=== PATIENT | female | born 2000 | race African-American/Black ===

== ENCOUNTER 2019-02-09 07:56 | Emergency (ER) | payer OTHER ==
[2019-02-09 09:05] LABS: ABSOLUTE EOSINOPHILS # (AUTO) 0.1 10^3/uL (0.0-0.6); ABSOLUTE LYMPHOCYTES (AUTO) 1.3 10^3/uL (0.5-4.7); ABSOLUTE MONOCYTES (AUTO) 0.7 10^3/uL (0.1-1.4); ABSOLUTE NEUT (AUTO) 7.6 10^3/uL (1.7-8.2); BASOPHILS % (AUTO) 0.2 % (0-2); EOSINOPHILS % (AUTO) 0.8 % (0-6); HEMATOCRIT 33.7 % (36.0-47.0); HEMOGLOBIN 11.2 g/dL (12.0-15.5); LYMPHOCYTES % (AUTO) 13.4 % (13-45); MEAN CORPUSCULAR HEMOGLOBIN 26.1 pg (27.0-33.4); MEAN CORPUSCULAR HGB CONC 33.3 g/dL (32.0-36.0); MEAN CORPUSCULAR VOLUME 78 fl (80-97); MONOCYTES % (AUTO) 6.9 % (3-13); PLATELET COUNT 359 10^3/uL (150-450); RED CELL DISTRIBUTION WIDTH 17.2 % (11.5-14.0); SEGMENTED NEUTROPHILS % (AUTO) 78.7 % (42-78); TOTAL CELLS COUNTED % (AUTO) 100 %; WHITE BLOOD COUNT 9.7 10^3/uL (4.0-10.5)
[2019-02-09] MEDS ORDERED: ACETAMINOPHEN 325 MG TABLET PO ONE (09:28)
--- NOTE | 2019-02-09 09:29 | ER Document Report ---
ED General - General Chief Complaint: OB Problem (<20wks) Stated Complaint: ABDOMINAL CRAMPING Time Seen by Provider: 02/09/19 09:04 Notes: 18 year old with EDC of 07/09/19 currently at approx 18 4/7 weeks gestation with local care and next appt 02/23 is here with 1 day of abdominal cramps and pain. No fever and no urinary symptoms. TRAVEL OUTSIDE OF THE [place] IN LAST 30 DAYS: No - HPI Onset: Just prior to arrival Severity: Mild Exacerbated by: Denies Relieved by: Denies Similar symptoms previously: No - Related Data Allergies/Adverse Reactions: kiwi Allergy (Verified 02/09/19 08:03) peanut butter Allergy (Uncoded 02/09/19 08:03) Past Medical History - Social History Smoking Status: Never Smoker Family History: Reviewed & Not Pertinent Patient has suicidal ideation: No Patient has homicidal ideation: No Review of Systems - Review of Systems Constitutional: No symptoms reported EENT: No symptoms reported Cardiovascular: No symptoms reported Respiratory: No symptoms reported Gastrointestinal: No symptoms reported Genitourinary: See HPI Female Genitourinary: No symptoms reported Musculoskeletal: No symptoms reported Skin: No symptoms reported Hematologic/Lymphatic: No symptoms reported Neurological/Psychological: No symptoms reported Physical Exam - Vital signs Vitals: Temp Pulse Resp BP Pulse Ox 98.0 F 116 H 20 120/77 97 02/09/19 07:56 02/09/19 07:56 02/09/19 07:56 02/09/19 07:56 02/09/19 07:56 Interpretation: Normal - General General appearance: Appears well, Alert - HEENT Head: Normocephalic, Atraumatic Eyes: Normal Pupils: PERRL - Respiratory Respiratory status: No respiratory distress Chest status: Nontender Breath sounds: Normal Chest palpation: Normal - Cardiovascular Rhythm: Regular Heart sounds: Normal auscultation Murmur: No - Abdominal Inspection: Normal Distension: No distension Bowel sounds: Normal Tenderness: Nontender Organomegaly: No organomegaly - Back Back: Normal, Nontender - Extremities General upper extremity: Normal inspection, Nontender, Normal color, Normal ROM, Normal temperature General lower extremity: Normal inspection, Nontender, Normal color, Normal ROM, Normal temperature, Normal weight bearing. No: Desirae's sign - Neurological Neuro grossly intact: Yes Cognition: Normal Orientation: AAOx4 Joe Coma Scale Eye Opening: Spontaneous Joe Coma Scale Verbal: Oriented Joe Coma Scale Motor: Obeys Commands Joe Coma Scale Total: 15 Speech: Normal Motor strength normal: LUE, RUE, LLE, RLE Sensory: Normal - Psychological Associated symptoms: Normal affect, Normal mood - Skin Skin Temperature: Warm Skin Moisture: Dry Skin Color: Normal Course - Re-evaluation Re-evalutation: 02/09/19 14:42 MDM Resting and improved. Discussed follow up and she expressed understanding. - Vital Signs Vital signs: Temp Pulse Resp BP Pulse Ox 97.5 F 89 18 109/56 L 100 02/09/19 14:57 02/09/19 14:57 02/09/19 14:57 02/09/19 14:57 02/09/19 14:57 - Laboratory Result Diagrams: 02/09/19 08:52 02/09/19 08:52 Laboratory results interpreted by me: 02/09/19 02/09/19 02/09/19 08:52 08:52 09:30 Hgb 11.2 L Hct 33.7 L MCV 78 L MCH 26.1 L RDW 17.2 H Seg Neutrophils % 78.7 H Sodium 136.7 L BUN 4 L Creatinine 0.51 L Beta HCG, Quant 28832.00 H Urine Protein 30 H Urine Urobilinogen 4.0 H Ur Leukocyte Esterase LARGE H Urine Ascorbic Acid 20 H - Diagnostic Test Radiology reviewed: Reports reviewed Discharge - Discharge Clinical Impression: UTI (urinary tract infection) Qualifiers: Urinary tract infection type: site unspecified Hematuria presence: with hematuria Qualified Code(s): N39.0 - Urinary tract infection, site not specified Normal IUP (intrauterine ) on ultrasound Qualifiers: Trimester: second trimester Qualified Code(s): Z34.92 - Encounter for super vision of normal , unspecified, second trimester Condition: Good Disposition: HOME, SELF-CARE Instructions: ([facility]), Urinary Tract Infection ([facility]) Additional Instructions: Rest, fluids, medicines as directed. Please return here for any problems or any concerns. Take tylenol as needed for pain and return here for any problems or any concerns. Prescriptions: Nitrofurantoin/Nitrofuran Mac [Macrobid 100 mg Capsule] 1 tab PO BID #20 capsule Forms: Parent Work Note
[2019-02-09 09:31] LABS: ALBUMIN 3.7 g/dL (3.7-5.6); ALKALINE PHOSPHATASE 86 U/L (50-135); ANION GAP 8 (5-19); ASPARTATE AMINO TRANSFERASE 15 U/L (5-30); BILIRUBIN,DIRECT 0.1 mg/dL (0.0-0.4); BILIRUBIN,TOTAL 0.3 mg/dL (0.2-1.3); BLOOD UREA NITROGEN 4 mg/dL (7-20); CALCIUM 9.6 mg/dL (8.4-10.2); CARBON DIOXIDE 25 mmol/L (22-30); CHLORIDE 104 mmol/L (98-107); GLUCOSE 78 mg/dL (75-110); POTASSIUM 3.8 mmol/L (3.6-5.0); TOTAL PROTEIN 6.9 g/dL (6.3-8.2)
[2019-02-09 09:54] LABS: APPEARANCE,URINE SLIGHTLY-CLOUDY; BILIRUBIN,URINE NEGATIVE (NEGATIVE); COLOR,URINE AMBER; GLUCOSE, URINE NEGATIVE (NEGATIVE); KETONES,URINE NEGATIVE (NEGATIVE); LEUKOCYTE ESTERASE,URINE LARGE (NEGATIVE); NITRITE,URINE NEGATIVE (NEGATIVE); PROTEIN,URINE 30 mg/dL (NEGATIVE); URINE SPECIFIC GRAVITY 1.031
--- NOTE | 2019-02-09 12:38 | RADIOLOGY REPORT (SQ) ---
EXAM DESCRIPTION: U/S OB LIMITED COMPLETED DATE/TIME: 02/09/2019 12:09 pm REASON FOR STUDY: abd cramps/ pain COMPARISON: None. TECHNIQUE: Limited transabdominal grayscale ultrasound for evaluation of specific requested obstetri alka parameters. LIMITATIONS: None. FINDINGS: EGA: 18 weeks 4 days. LEYLA: 07/09/2019. CERVICAL LENGTH: 4.8 cm Closed. DVP: 5 cm. FHR: 162 beats per minute. PRESENTATION: Breech. PLACENTA: Anterior ANATOMY: Not assessed OTHER: EGA based on ultrasound 18 weeks 5 days (concordant). IMPRESSION: LIMITED OBSTETRICAL ULTRASOUND WITH MEASURED PARAMETERS DELINEATED ABOVE. Trimester of : Second trimester - 13 weeks 1 day to 27 weeks 6 days. TECHNICAL DOCUMENTATION: JOB ID: [id number] [employer]- All Rights Reserved Reading location - IP/workstation name: [email or web address]
[2019-02-09] MEDS ORDERED: NITROFURANTOIN MONOHYD/M-CRYST 100 MG CAPSULE PO ONE (14:41)
[2019-02-09 14:57] VITALS: BP 109/56
== END 2019-02-09 15:00 | disposition home or self-care (01) ==
LOC: ER 07:56 → EDSTATUS 07:56 → ER 15:00
DX: O23.42 Unspecified infection of urinary tract in pregnancy, second trimester (principal); O26.892 Other specified pregnancy related conditions, second trimester; R10.9 Unspecified abdominal pain; Z3A.18 18 weeks gestation of pregnancy
CPT/HCPCS: 99284; 36415; 84702; 83690; 85025; 80053; 81001; 76815; J8499

== ENCOUNTER 2019-03-31 08:31 | Outpatient (CLI) | payer OTHER, MEDICAID ==
[2019-03-31 09:16] LABS: APPEARANCE,URINE SLIGHTLY-CLOUDY; BILIRUBIN,URINE NEGATIVE (NEGATIVE); COLOR,URINE YELLOW; GLUCOSE, URINE NEGATIVE (NEGATIVE); KETONES,URINE NEGATIVE (NEGATIVE); LEUKOCYTE ESTERASE,URINE LARGE (NEGATIVE); NITRITE,URINE NEGATIVE (NEGATIVE); PROTEIN,URINE NEGATIVE (NEGATIVE); URINE SPECIFIC GRAVITY 1.013; UROBILINOGEN,URINE NEGATIVE mg/dL (<2.0)
[2019-03-31 09:28] LABS: URINE AMPHETAMINES SCREEN NEGATIVE; URINE BARBITURATES SCREEN NEGATIVE; URINE BENZODIAZEPINES SCREEN NEGATIVE; URINE COCAINE SCREEN NEGATIVE; URINE MARIJUANA (THC) SCREEN NEGATIVE; URINE METHADONE SCREEN NEGATIVE; URINE PHENCYCLIDINE SCREEN NEGATIVE
[2019-03-31] MEDS ORDERED: BETAMET ACET/BETAMET NA INJ 6 MG/1 ML ONE (10:55)
--- NOTE | 2019-03-31 10:55 | RADIOLOGY REPORT (SQ) ---
EXAM DESCRIPTION: U/S OB LIMITED COMPLETED DATE/TIME: 03/31/2019 10:35 am REASON FOR STUDY: TRANSVAGINAL CERVICAL LENGTH COMPARISON: 02/09/2019. TECHNIQUE: Limited transvaginal and transabdominal grayscale ultrasound for evaluation of specific r equested obstetrical parameters. LIMITATIONS: None. FINDINGS: CERVICAL LENGTH: 2.0 cm. Closed. There is funneling at the internal os. MARIA LUISA: 14.6 cm. FHR: 144 beats per minute. PRESENTATION: Breech. PLACENTA: Anterior ANATOMY: Not assessed OTHER: No other significant findings. IMPRESSION: LIMITED OBSTETRICAL ULTRASOUND WITH MEASURED PARAMETERS DELINEATED ABOVE. Trimester of : Second trimester - 13 weeks 1 day to 27 weeks 6 days. TECHNICAL DOCUMENTATION: JOB ID: [id number] [employer]- All Rights Reserved Reading location - IP/workstation name: [email or web address]
[2019-03-31] MEDS ORDERED: BETAMET ACET/BETAMET NA INJ 6 MG/1 ML IM ONE (11:07)
[2019-03-31 11:22] LABS: BACTERIA (WET MOUNT) 4+ BACTERIA SEEN; EPITHELIALS (WET MOUNT) 4+ EPITHELIALS SEEN; RBCS (WET MOUNT) 1+ RBCS SEEN; T.VAGINALIS (WET MOUNT) NO TRICHOMONAS SEEN; WBCS (WET MOUNT) 3+ WBCS SEEN; YEAST (WET MOUNT) NO YEAST SEEN
[2019-03-31] MEDS ORDERED: FLUCONAZOLE 100 MG TABLET PO ONE ×2 (11:40→13:30)
[2019-03-31] MEDS ORDERED: FLUCONAZOLE 100 MG TABLET ONE ×2 (12:10→12:14)
[2019-03-31] MEDS ORDERED: PENICILLIN G POTASSIUM 5,000,000 UNIT in DEXTROSE 5%-WATER 100 ML IV ONE (12:27)
--- NOTE | 2019-03-31 12:27 | PDOC TRANSFER SUMMARY ---
General Admission Date/PCP: NORMAN SILVA MD Admission Date: 03/31/19 Transfer Date: 03/31/19 Accepting Facility: [facility] Accepting Physician: Dr. Parra Resuscitation Status: Full Code - Transfer Diagnosis (1) contractions Is this a current diagnosis for this admission?: Yes Diagnosis Summary: patient came in complaining of constant lower abdominal pain and intermittent worsening of the abd pain. as well as back pain. Clinically she has a yeast infection despite wet prep negative. Patient was initially evaluated by CNM and US ordered without fFN collected for hold first. Therefore no fFN result available. patient appears comfortable. Upon return from US patient was claudette q 3-5 minutes. She voided and she now is having ctx q 10-12 minutes. The contractions palpate mild and are difficult to monitor - patient was given a marker. US result and pictures are c/w this with notation of cervical shortening to 2cm and u shaped funneling. Breech presentation. Celestone ordered. Cervical length pulled from office anatomy US - cervix was closed without funneling on 02/19/2019 and length was 3.46cm. Reviewed findings with patient and family and Dr. Lesly Meadows. Option given to patient for transfer in case of possible delivery due to . Pt desires to transfer to [facility] for evaluation and continued monitoring in case due to cervical shortening and symptomatic contractions. [facility] contacted and Magnesium Sulfate initiated and PCN initiated. Dr. Parra accepted patient. Appreciate Dr. Parra and Dr. Meadows assistance with patient. GC/Chlam negative. 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 External os is closed. - Transfer Medications Home Medications: Vit No.130/Iron/Folic [ Vitamins] 1 each PO DAILY 03/31/19 Transfer Medications: Current Medications Fluconazole (Diflucan 100 Mg Tablet) 150 mg PO NOW ONE Stop: 03/31/19 12:23 Magnesium Sulfate 4gram load with 2gram/hr Penicillin for GBS prophylaxis Celestone 12mg IM once now. - Allergies Allergies/Adverse Reactions: kiwi Allergy (Verified 03/31/19 08:44) peanut butter Allergy (Uncoded 02/09/19 08:03) - Diet/Activity Discharge Diet: As Tolerated Discharge Activity: Bedrest Hospital Course Hospital Course: 19yo at 25+1ega (LEYLA 07/13/2019) presents for abdominal and pelvic and back pain. See dx above for presentation and evaluation and plan. Short infervan with now 9 month old present with patient. Prior delivery was 07/16/2018 FTSVD (6#15oz female) with IOL due to post LEYLA. She delivered G1 in [place]. Physical Exam Vital Signs: Intake & Output 03/30/19 03/31/19 04/01/19 06:59 06:59 06:59 Weight 85.7 kg General appearance: PRESENT: no acute distress, well-developed, well-nourished Head exam: PRESENT: atraumatic, normocephalic Respiratory exam: PRESENT: clear to auscultation cristel. ABSENT: rales, rhonchi, wheezes Cardiovascular exam: PRESENT: RRR. ABSENT: diastolic murmur, rubs, systolic murmur Pulses: PRESENT: normal dorsalis pedis pul Vascular exam: PRESENT: normal capillary refill GI/Abdominal exam: PRESENT: normal bowel sounds, soft. ABSENT: distended, guarding, mass, organolmegaly, rebound, tenderness Rectal exam: PRESENT: deferred Extremities exam: PRESENT: full ROM. ABSENT: calf tenderness, clubbing, pedal edema Musculoskeletal exam: PRESENT: ambulatory Neurological exam: PRESENT: alert, awake, oriented to person, oriented to place, oriented to time, oriented to situation, CN II-XII grossly intact. ABSENT: motor sensory deficit Results Laboratory Results: 03/31/19 08:44 Urine Color YELLOW Urine Appearance SLIGHTLY-CLOUDY Urine pH 7.0 Ur Specific [place] 1.013 Urine Protein NEGATIVE Urine Glucose (UA) NEGATIVE Urine Ketones NEGATIVE Urine Blood NEGATIVE Urine Nitrite NEGATIVE Ur Leukocyte Esterase LARGE H Urine WBC (Auto) 11 Urine RBC (Auto) 3 Impressions: Obstetrics Ultrasound 03/31/19 00:00 IMPRESSION: LIMITED OBSTETRICAL ULTRASOUND WITH MEASURED PARAMETERS DELINEATED ABOVE. Trimester of : Second trimester - 13 weeks 1 day to 27 weeks 6 days. Status: Imported from PACS Plan Discharge Plan: Transfer to [facility] for additional monitoring and when discharged from [facility] will continue to follow at [facility] in [place], [place] Time Spent: Greater than 30 Minutes
[2019-03-31] MEDS ORDERED: MAGNESIUM SULFATE 20 GM/500 ML RTUINJ IV PRN (12:34)
[2019-03-31] MEDS ORDERED: MAGNESIUM SULFATE 4 GM/100 ML RTUPB IV ONE ×2 (12:35→13:30)
[2019-03-31] MEDS ORDERED: MAGNESIUM SULFATE 20 GM/500 ML RTUINJ IV ONE (12:36)
[2019-03-31] MEDS ORDERED: PENICILLIN G-K 5 MILLION UNIT VIAL ONE (12:36)
[2019-03-31] MEDS ORDERED: RINGERS SOLUTION,LACTATED 1,000 ML IV PRN (12:45)
[2019-03-31 12:53] LABS: CHLAM PCR NOT DETECTED (NOT DETECT)
[2019-03-31] MEDS ORDERED: PENICILLIN G POTASSIUM 2,500,000 UNIT in DEXTROSE 5%-WATER 50 ML IV SCH (16:27)
== END 2019-03-31 16:04 | disposition short-term general hospital (02) ==
LOC: LC 08:31
PROVIDERS: ATTEND Student in an Organized Health Care Education/Training Program
PROC: 4A1HXCZ Monitoring of Products of Conception, Cardiac Rate, External Approach (ICD-10-PCS; principal; 2019-03-31)
DX: O60.02 Preterm labor without delivery, second trimester (principal); O26.872 Cervical shortening, second trimester; O98.812 Other maternal infectious and parasitic diseases complicating pregnancy, second trimester; B37.9 Candidiasis, unspecified; Z3A.25 25 weeks gestation of pregnancy; Z91.010 Allergy to peanuts; Z91.013 Allergy to seafood
CPT/HCPCS: 59899; 87086; 87210; 81001; 80307; 87491; 87591; 76815; J3475 ×2; J2540; J0702

== ENCOUNTER 2019-06-18 21:24 | Outpatient (CLI) | payer OTHER, MEDICAID ==
[2019-06-18 22:01] LABS: APPEARANCE,URINE SLIGHTLY-CLOUDY; BILIRUBIN,URINE NEGATIVE (NEGATIVE); CALCIUM OXALATE CRYSTALS,URINE MODERATE /HPF; COLOR,URINE YELLOW; GLUCOSE, URINE NEGATIVE (NEGATIVE); KETONES,URINE 20 mg/dL (NEGATIVE); LEUKOCYTE ESTERASE,URINE TRACE (NEGATIVE); NITRITE,URINE NEGATIVE (NEGATIVE); PROTEIN,URINE 30 mg/dL (NEGATIVE); URINE SPECIFIC GRAVITY 1.023
[2019-06-18 22:21] LABS: URINE AMPHETAMINES SCREEN NEGATIVE; URINE BARBITURATES SCREEN NEGATIVE; URINE BENZODIAZEPINES SCREEN NEGATIVE; URINE COCAINE SCREEN NEGATIVE; URINE MARIJUANA (THC) SCREEN NEGATIVE; URINE METHADONE SCREEN NEGATIVE; URINE PHENCYCLIDINE SCREEN NEGATIVE
--- NOTE | 2019-06-18 22:45 | Non Stress Test Report ---
Non Stress Test Datetime Report Generated by CPN: 06/18/2019 22:45 DEMOGRAPHIC EGA NST: 36.3 INDICATION Indication for Study (NST) Other: Labor check URINE RESULTS Urine Protein, NST: Positive MONITORING Monitor Explained: Monitor Explained; Test Explained; Patient Verbalized Understanding Time on Monitor: 06/18/2019 22:02 Time off Monitor: 06/18/2019 22:29 NST Duration: 27 NST INTERVENTIONS NST Interventions: PO Hydration Physician Notified NST: Dr. Garcia BABY A: [id number] BABY A Movement : Present Contraction Frequency : none FHR Baseline : 125 Accelerations : 15X15 Decelerations : None Variability : Moderate 6-25bpm NST Review: Meets Criteria for Reactive NST NST Review and Verified By : SANG Garnett NST Results: Reactive NST REPORT Report Trigger: Send Report
== END 2019-06-18 22:40 | disposition home or self-care (01) ==
LOC: LC 21:24
PROVIDERS: ATTEND Obstetrics & Gynecology Gynecology
PROC: 4A1HXCZ Monitoring of Products of Conception, Cardiac Rate, External Approach (ICD-10-PCS; principal; 2019-06-18)
DX: Z34.93 Encounter for supervision of normal pregnancy, unspecified, third trimester (principal)
CPT/HCPCS: 59025; 80307; 81001

== ENCOUNTER 2019-07-08 20:40 | Inpatient (IN) | payer OTHER, MEDICAID ==
[2019-07-08] MEDS ORDERED: RINGERS SOLUTION,LACTATED 1,000 ML IV ONE (21:07)
[2019-07-08] MEDS ORDERED: RINGERS SOLUTION,LACTATED 1,000 ML IV PRN (21:07)
[2019-07-08] MEDS ORDERED: OXYTOCIN 10 UNIT/ML VIAL ONE (21:09)
[2019-07-08] MEDS ORDERED: MISOPROSTOL 0.2 MG TABLET ONE (21:10)
[2019-07-08] MEDS ORDERED: OXYTOCIN/NORMAL SALINE 20 UNIT/1,000 ML RTUINJ ONE (21:10)
[2019-07-08] MEDS ORDERED: LIDOCAINE 1% INJ-PF (10 MG/ML) 30 ML SDV ONE (21:10)
[2019-07-08 21:51] LABS: ABSOLUTE EOSINOPHILS # (AUTO) 0.1 10^3/uL (0.0-0.6); ABSOLUTE LYMPHOCYTES (AUTO) 2.5 10^3/uL (0.5-4.7); ABSOLUTE MONOCYTES (AUTO) 1.2 10^3/uL (0.1-1.4); ABSOLUTE NEUT (AUTO) 8.8 10^3/uL (1.7-8.2); BASOPHILS % (AUTO) 0.3 % (0-2); EOSINOPHILS % (AUTO) 0.7 % (0-6); HEMATOCRIT 31.2 % (36.0-47.0); HEMOGLOBIN 10.4 g/dL (12.0-15.5); LYMPHOCYTES % (AUTO) 19.5 % (13-45); MEAN CORPUSCULAR HEMOGLOBIN 25.2 pg (27.0-33.4); MEAN CORPUSCULAR HGB CONC 33.3 g/dL (32.0-36.0); MEAN CORPUSCULAR VOLUME 76 fl (80-97); MONOCYTES % (AUTO) 9.2 % (3-13); PLATELET COUNT 326 10^3/uL (150-450); RED BLOOD COUNT 4.12 10^6/uL (3.72-5.28); RED CELL DISTRIBUTION WIDTH 18.2 % (11.5-14.0); SEGMENTED NEUTROPHILS % (AUTO) 70.3 % (42-78); TOTAL CELLS COUNTED % (AUTO) 100 %; WHITE BLOOD COUNT 12.6 10^3/uL (4.0-10.5)
--- NOTE | 2019-07-08 21:54 | Admission Physical ---
Datetime Report Generated by CPN: 07/08/2019 21:54 CURRENT ADMISSION Chief Complaint: Uterine Contractions Indication for Induction: Not Applicable Admit Impression : No Active Labor Admit Plan: Admit to Unit ALLERGIES Medication Allergies: No Medication Allergies: kiwi (06/18/2019) Latex: No Latex Allergies OBSTETRICAL HISTORY EDC: 07/13/2019 00:00 : 2 Para: 1 Term: 1 : 0 SAB: 0 IAB: 0 Ectopic: 0 Livin Cesareans: 0 VBACs: 0 Multiple Births: 0 Gestational Diabetes: No Rh Sensitization: No Incompetent Cervix: No QUINTON: No Infertility: No ART Treatment: No Uterine Anomaly: No IUGR: No Hx Previous C/S: No Macrosomia: No Hx Loss/Stillborn: No PIH: No Hx : No Placenta Previa/Abruption: No Depression/PP Depression: No PTL/PROM: No Post Hemorrhage: No Current Procedures: Ultrasound; NST SEE RECORDS Alcohol: No Marijuana : No Cocaine: No Other Illicit Drugs: No Cigarettes: Never Smoker. 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 Surgery: No Heart Disease: No Hosp/Surgery: No Autoimmune Disorder: No Anesthetic Complications: No Kidney Disease: No Abnormal Pap Smear: No Neuro/Epilepsy: No Psychiatric Disorders: No Other Medical Diseases: No Hepatitis/Liver Disease: No Significant Family History: No Varicosities/Phlebitis: No Trauma/Violence : No Thyroid Dysfunction: No INFECTIOUS HISTORY Gonorrhea: No Genital Herpes: No Chlamydia: No Syphilis: No HIV/AIDS Exposure: No HPV: No PHYSICAL EXAM General: Normal HEENT: Normal Neurologic: Normal Thyroid: Normal Heart: Normal Lungs: Normal Breast: Deferred Back: Normal Abdomen: Normal Genitourinary Exam: Normal Extremities: Normal DTRs: Normal Pelvic Type: Adequate Vital Signs: Reviewed VAGINAL EXAM Dilatation: 6 Effacement: 75 Station: 0 MEMBRANES Pooling: Negative Membranes: Intact FETUS A EGA: 39.2 Monitoring: External US FHR- Baseline: 120 Variability: Moderate 6-25bpm Decelerations: None FHR Category: Category I Presentation: Vertex Admit Comment: Admit for labor PLANS FOR LABOR AND DELIVERY Labor and Delivery: None Pain Management: Epidural Feeding Preference: Both Circumcision: Yes INFORMED CONSENT Signature: with User ID: [email or web address]
[2019-07-08 21:58] LABS: APPEARANCE,URINE SLIGHTLY-CLOUDY; BILIRUBIN,URINE NEGATIVE (NEGATIVE); COLOR,URINE YELLOW; GLUCOSE, URINE NEGATIVE (NEGATIVE); KETONES,URINE NEGATIVE (NEGATIVE); LEUKOCYTE ESTERASE,URINE SMALL (NEGATIVE); NITRITE,URINE NEGATIVE (NEGATIVE); PROTEIN,URINE NEGATIVE (NEGATIVE); URINE SPECIFIC GRAVITY 1.018
[2019-07-08] MEDS ORDERED: BUPIVACAINE HCL 0.25 % INJ/PF (2.5 MG/1 ML) 30 ML VIAL ONE (22:02)
[2019-07-08] MEDS ORDERED: EPHEDRINE SULFATE INJ 50 MG/1 ML AMPULE ONE (22:02)
[2019-07-08] MEDS ORDERED: FENTANYL/BUPIVACAINE/NS/PF 300 MCG/150 ML RTUINJ EPI ONE (22:02)
[2019-07-08 22:24] LABS: URINE AMPHETAMINES SCREEN NEGATIVE; URINE BARBITURATES SCREEN NEGATIVE; URINE BENZODIAZEPINES SCREEN NEGATIVE; URINE COCAINE SCREEN NEGATIVE; URINE MARIJUANA (THC) SCREEN NEGATIVE; URINE METHADONE SCREEN NEGATIVE; URINE PHENCYCLIDINE SCREEN NEGATIVE
[2019-07-08] MEDS ORDERED: PROMETHAZINE HCL INJ 25 MG/1 ML VIAL IV PRN (23:44)
[2019-07-08] MEDS ORDERED: BENZOCAINE/MENTHOL AEROSOL SPRAY 56 ML TOP PRN (23:44)
[2019-07-08] MEDS ORDERED: ZOLPIDEM TARTRATE 5 MG TABLET PO PRN (23:44)
[2019-07-08] MEDS ORDERED: ACETAMINOPHEN WITH CODEINE #3 TABLET PO PRN ×2 (23:44)
[2019-07-08] MEDS ORDERED: OXYTOCIN/NORMAL SALINE 20 UNIT/1,000 ML RTUINJ IV PRN (23:44)
[2019-07-08] MEDS ORDERED: NA PHOS,M-B/NA PHOS,DI-BA (ADULT) 133 ML ENEMA PR PRN (23:44)
[2019-07-08] MEDS ORDERED: PROMETHAZINE HCL 25 MG SUPP.RECT PR PRN (23:44)
[2019-07-08] MEDS ORDERED: PSEUDOEPHEDRINE HCL 30 MG TABLET PO PRN (23:44)
[2019-07-08] MEDS ORDERED: DIPH/PERTUSS(ACELL)/TETANUS VAC/PF 0.5 ML SYR (>=10YO) IM PRN (23:44)
[2019-07-08] MEDS ORDERED: MEASLES,MUMPS&RUBELLA VACC/PF 0.5 ML VIAL SUBCUT PRN (23:44)
[2019-07-08] MEDS ORDERED: GLYCERIN/WITCH HAZEL LEAF 1 EACH MED..WIPE TP PRN (23:44)
[2019-07-08] MEDS ORDERED: ACETAMINOPHEN 650 MG SUPP.RECT PR PRN (23:44)
[2019-07-08] MEDS ORDERED: DIPHENHYDRAMINE HCL 25 MG CAPSULE PO PRN (23:44)
[2019-07-08] MEDS ORDERED: PROMETHAZINE HCL 25 MG TABLET PO PRN (23:44)
[2019-07-08] MEDS ORDERED: DIBUCAINE 1% OINTMENT 28 GM TP PRN (23:44)
[2019-07-08] MEDS ORDERED: MAGNESIUM HYDROXIDE SUSP 30 ML UDCUP PO PRN (23:44)
[2019-07-08] MEDS ORDERED: FAMOTIDINE 20 MG TABLET PO ONE (23:45)
--- NOTE | 2019-07-09 03:09 | Delivery Summary ---
Del Sum A-C Datetime Report Generated by CPN: 07/09/2019 03:08 DELIVERY PERSONNEL DELIVERY PERSONNEL: [id number] Delivery Doctor:: Michael Schmidt MD Labor and Delivery Nurse:: Kimmie Mullen RN Nursery Nurse:: Domenica Verduzco RN Radial Drill Press Operator For Plastic/CIGAR HEAD PIERCER: Kandy Donn, FUDGE CANDY MAKER Radial Drill Press Operator For Plastic/CIGAR HEAD PIERCER: Nicol Coles, ST MATERNAL INFORMATION Delivery Anesthesia: Epidural Medications After Delivery: Pitocin Bolus-Please Comment Meds After Delivery Comment: Pitocin 20 units/1000 ml NSS Estimated Blood Loss (ml): 400 Delivery QBL: 250 Maternal Complications: None LABOR SUMMARY EDC: 07/13/2019 00:00 No. Babies in Womb: 1 Attempted: No Labor Anesthesia: Epidural LABOR INFORMATION Reason for Induction: Not Applicable Onset of Labor: 07/08/2019 21:00 Complete Dilatation: 07/09/2019 00:27 Oxytocin: N/A Group B Beta Strep: negative Antibiotics # of Doses: 0 Steroids Given: None Reason Steroids Not Administered: Not Applicable MEMBRANES Membranes Rupture Method: Artificial Rupture of Membranes: 07/09/2019 00:27 Length of Rupture (hr): 1.17 Amniotic Fluid Color: Clear Amniotic Fluid Amount: Moderate Amniotic Fluid Odor: Normal STAGES OF LABOR Stage 1 hr: 3 Stage 1 min: 27 Stage 2 hr: 1 Stage 2 min: 10 Stage 3 hr: 0 Stage 3 min: 3 Total Time in Labor hr: 4 Total Time in Labor min: 40 VAGINAL DELIVERY Episiotomy: None Laceration #1: Perineal Laceration Extension #1: Second Degree Laceration #2: None Laceration Extension #2: N/A Laceration #3: None Laceration Extension #3: N/A Laceration Repair: Yes Laceration Repair Note: repair with 3-0 chromic in usual fashion with good approximation of tissue Sponge Count Correct: Vaginal Sweep Performed Sharps Count Correct: Yes CSECTION DELIVERY Primary Indication: N/A Secondary Indication: N/A CSection Incidence: N/A Labor: N/A Elective: N/A CSection Incision: N/A BABY A INFORMATION Delivery Date/Time: 07/09/2019 01:37 Method of Delivery: Vaginal Nurse Controlled Delivery: No Born in Route : No : N/A Forceps: N/A Vacuum Extraction: N/A Shoulder Dystocia : No PRESENTATION/POSITION BABY A Presentation: Cephalic Cephalic Presentation: Vertex Vertex Position: Left Occipital Anterior Breech Presentation: N/A PLACENTA INFORMATION BABY A Placenta Delivery Time : 07/09/2019 01:40 Placenta Method of Delivery: Spontaneous Placenta Status: Delivered SCORES BABY A Heart Rate 1 min: >100 bpm Resp Effort 1 min: Good Cry Reflex Irritability 1 min: Cough or Sneeze or Pulls Away Muscle Tone 1 min: Active Motion Color 1 min: Blue/Pale Resuscitation Effort 1 min: Tactile Stimulation SCORE 1 MIN: 8 Heart Rate 5 min: >100 bpm Resp Effort 5 min: Good Cry Reflex Irritability 5 min: Cough or Sneeze or Pulls Away Muscle Tone 5 min: Active Motion Color 5 min: Body Manuel Garcia Ii, Extremities Blue Resuscitation Effort 5 min: Tactile Stimulation SCORE 5 MIN: 9 INFORMATION BABY A Gestational Age at Delivery: 39.3 Gestational Status: Full Term- 39- 40.6 Weeks Outcome : Liveborn Condition : Stable Sex: Male IDENTIFICATION BABY A Verification Date/Time: 07/09/2019 01:46 ID Band Number: [id number] Mother's Name Verified: Yes Infant RN Verifying Infant: , RN Additional Verifying Personnel: LBeverly, FUDGE CANDY MAKER WEIGHT/LENGTH BABY A Birthweight (gm): 3888 Infant Weight (lb): 8 Weight (oz): 9 Infant Length (in): 20.50 Length (cm): 52.07 CORD INFORMATION BABY A No. Cord Vessels: 3 Nuchal Cord : N/A Cord Blood Taken: Yes-For Eval (Mom's Blood Type - or O+) Suction: Mouth; Nose ASSESSMENT BABY A Complications: None Physical Findings at Delivery: Within Normal Limits Respirations: Appears Normal Transferred To: Remains with Mother SIGNATURES Signature: with User ID: [email or web address]
[2019-07-09] MEDS: IBUPROFEN 800 MG TABLET PO SCH ×3 (05:22→21:50)
[2019-07-09 06:53] LABS: HEMATOCRIT 24.4 % (36.0-47.0); MEAN CORPUSCULAR HEMOGLOBIN 25.2 pg (27.0-33.4); MEAN CORPUSCULAR HGB CONC 33.3 g/dL (32.0-36.0); MEAN CORPUSCULAR VOLUME 76 fl (80-97); PLATELET COUNT 255 10^3/uL (150-450); RED BLOOD COUNT 3.23 10^6/uL (3.72-5.28); RED CELL DISTRIBUTION WIDTH 18.3 % (11.5-14.0); WHITE BLOOD COUNT 19.7 10^3/uL (4.0-10.5)
[2019-07-09 06:55] LABS: HEMOGLOBIN 8.1 g/dL (12.0-15.5)
[2019-07-09] MEDS: FERROUS SULFATE 325 MG TABLET PO SCH ×2 (09:53→18:43)
[2019-07-09] MEDS: SENNOSIDES/DOCUSATE 8.6-50 MG 1 EACH TABLET PO SCH (09:54)
[2019-07-09] MEDS: DOCUSATE SODIUM 100 MG CAPSULE PO SCH ×2 (09:54→18:42)
[2019-07-09] MEDS: PRENATAL VITAMIN W DHA CAPSULE PO SCH (09:54)
[2019-07-09] MEDS: FAMOTIDINE 20 MG TABLET PO SCH ×2 (09:54→21:49)
[2019-07-10] MEDS: IBUPROFEN 800 MG TABLET PO SCH ×3 (05:30→21:35)
[2019-07-10 07:02] LABS: HEMATOCRIT 22.3 % (36.0-47.0); MEAN CORPUSCULAR HEMOGLOBIN 25.4 pg (27.0-33.4); MEAN CORPUSCULAR HGB CONC 33.4 g/dL (32.0-36.0); MEAN CORPUSCULAR VOLUME 76 fl (80-97); PLATELET COUNT 258 10^3/uL (150-450); RED BLOOD COUNT 2.94 10^6/uL (3.72-5.28)
[2019-07-10 07:11] LABS: HEMOGLOBIN 7.5 g/dL (12.0-15.5)
--- NOTE | 2019-07-10 10:00 | PDOC PROGRESS REPORT ---
Subjective-OB Progress Note for:: 07/10/19 - PP day #1, doing well, denies c/o dizziness when UOB. States Hx of anemia. O+. breast and bottlefeeding. Physical Exam (OB) Vital Signs: Temp Pulse Resp BP Pulse Ox 98.1 F 88 18 105/68 100 07/10/19 07:13 07/10/19 07:13 07/10/19 07:13 07/10/19 07:13 07/10/19 07:13 Intake & Output 07/09/19 07/10/19 07/11/19 06:59 06:59 06:59 Intake Total 1120 Output Total 300 Balance -300 1120 Weight 94.5 kg - General General Appearance: Appears well, Alert In distress: None - PIH/Pre-Eclampsia DTR's: 2 + Clonus: Negative Headache: Absent Epigastric Pain: No Visual Changes: No - Lochia Lochia Amount: Small 10-25 ml Lochia Color: Rubra/Red - Abdomen Description: Soft Hernia Present: No Fundal Description: Firm, Midline Fundal Height: u/u - u/2 - Respiratory Respiratory Status: No respiratory distress - Genitourinary Genitourinary Note: voiding - Extremities Upper extremity: Normal inspection Lower extremities: Normal inspection - Neurological Cognition: Normal Orientation: AAOx4 - Psychological Associated symptoms: Normal affect, Normal mood - Skin Skin Temperature: Warm Skin Moisture: Dry Objective-Diagnostic Laboratory: 07/10/19 06:28 07/10/19 06:28 WBC 12.0 H RBC 2.94 L Hgb 7.5 L Hct 22.3 L MCV 76 L MCH 25.4 L MCHC 33.4 RDW 18.0 H Plt Count 258 Assessment and Plan(PN) - Assessment and Plan (1) (normal spontaneous vaginal delivery) Is this a current diagnosis for this admission?: Yes (2) Acute blood loss anemia Is this a current diagnosis for this admission?: Yes Plan:: Normal Ortho-statics. Will give IV iron today. Iron rich foods encouraged. - Time Spent with Patient Time with patient: Less than 15 minutes Medications reviewed and adjusted accordingly: Yes - Disposition Anticipated Discharge: Home Within: within 24 hours
[2019-07-10] MEDS ORDERED: IRON SUCROSE COMPLEX INJ/PF 100 MG/5 ML SDV IV ONE (10:30)
[2019-07-10] MEDS: DOCUSATE SODIUM 100 MG CAPSULE PO SCH ×2 (11:15→17:30)
[2019-07-10] MEDS: SENNOSIDES/DOCUSATE 8.6-50 MG 1 EACH TABLET PO SCH (11:15)
[2019-07-10] MEDS: FAMOTIDINE 20 MG TABLET PO SCH ×2 (11:15→21:35)
[2019-07-10] MEDS: FERROUS SULFATE 325 MG TABLET PO SCH ×2 (11:15→17:30)
[2019-07-10] MEDS: PRENATAL VITAMIN W DHA CAPSULE PO SCH ×2 (11:15→11:35)
[2019-07-11] MEDS: IBUPROFEN 800 MG TABLET PO SCH (05:25)
[2019-07-11 07:43] VITALS: BP 113/69
[2019-07-11] MEDS: PRENATAL VITAMIN W DHA CAPSULE PO SCH (09:30)
[2019-07-11] MEDS: FERROUS SULFATE 325 MG TABLET PO SCH (09:30)
[2019-07-11] MEDS: FAMOTIDINE 20 MG TABLET PO SCH (09:30)
[2019-07-11] MEDS: SENNOSIDES/DOCUSATE 8.6-50 MG 1 EACH TABLET PO SCH (09:30)
[2019-07-11] MEDS: DOCUSATE SODIUM 100 MG CAPSULE PO SCH (09:30)
--- NOTE | 2019-07-11 10:10 | PDOC DISCHARGE SUMMARY ---
Impression - Admit/DC Date/PCP Admission Date/Primary Care Provider: 07/08/19 21:10 JACY AUGUSTIN MD Discharge Date: 07/11/19 - PP Day #2, doing well, denies headache, blurred vision, difficulty w/ ambulation. Pt states hx of anemia, declilnes blood products, s/p attempted IV iron yesterday, IV site infiltrated- pt has icepack on her hand, states it is improving this morning - Discharge Diagnosis (1) Cervical shortening affecting in third trimester Is this a current diagnosis for this admission?: Yes (2) (normal spontaneous vaginal delivery) Is this a current diagnosis for this admission?: Yes (3) Acute blood loss anemia Is this a current diagnosis for this admission?: Yes (4) contractions Is this a current diagnosis for this admission?: Yes - Additional Information Resuscitation Status: Full Code Discharge Diet: As Tolerated, Regular Discharge Activity: Activity As Tolerated, No Lifting Over 10 Pounds, Pelvic Rest, No tub bath Referrals: JACY AUGUSTIN MD [Primary Care Provider] - (Follow up in 4 weeks at [facility]. Call the office and make an appointment. ) Prescriptions: Ferrous Sulfate [Feosol 325 mg Tablet] 325 mg PO DAILY #30 tablet Ibuprofen [Motrin 800 mg Tablet] 800 mg PO Q8 #60 tablet Home Medications: Vit No.130/Iron/Folic [ Tablet] 1 each PO DAILY 03/31/19 Ferrous Sulfate [Feosol 325 mg Tablet] 325 mg PO DAILY #30 tablet 07/11/19 Ibuprofen [Motrin 800 mg Tablet] 800 mg PO Q8 #60 tablet 07/11/19 HPI Reason(s) for Admission: Induction of Labor Procedures: Ultrasound Intrapartum Procedure(s): Spontaneous Vaginal Delivery Complication(s): Laceration-Vaginal Laceration-Degree: 2nd Results Laboratory Results: WBC 12.0 10^3/uL (4.0-10.5) H 07/10/19 06:28 RBC 2.94 10^6/uL (3.72-5.28) L 07/10/19 06:28 Hgb 7.5 g/dL (12.0-15.5) L 07/10/19 06:28 Hct 22.3 % (36.0-47.0) L 07/10/19 06:28 MCV 76 fl (80-97) L 07/10/19 06:28 MCH 25.4 pg (27.0-33.4) L 07/10/19 06:28 MCHC 33.4 g/dL (32.0-36.0) 07/10/19 06:28 RDW 18.0 % (11.5-14.0) H 07/10/19 06:28 Plt Count 258 10^3/uL (150-450) 07/10/19 06:28 Lymph % (Auto) 19.5 % (13-45) 07/08/19 21:39 [place] % (Auto) 9.2 % (3-13) 07/08/19 21:39 Eos % (Auto) 0.7 % (0-6) 07/08/19 21:39 Baso % (Auto) 0.3 % (0-2) 07/08/19 21:39 Absolute Neuts (auto) 8.8 10^3/uL (1.7-8.2) H 07/08/19 21:39 Absolute Lymphs (auto) 2.5 10^3/uL (0.5-4.7) 07/08/19 21:39 Absolute Monos (auto) 1.2 10^3/uL (0.1-1.4) 07/08/19 21:39 Absolute Eos (auto) 0.1 10^3/uL (0.0-0.6) 07/08/19 21:39 Absolute Basos (auto) 0.0 10^3/uL (0.0-0.2) 07/08/19 21:39 Seg Neutrophils % 70.3 % (42-78) 07/08/19 21:39 Urine Color YELLOW 07/08/19 20:45 Urine Appearance SLIGHTLY-CLOUDY 07/08/19 20:45 Urine pH 6.0 (5.0-9.0) 07/08/19 20:45 Ur Specific [place] 1.018 07/08/19 20:45 Urine Protein NEGATIVE mg/dL (NEGATIVE) 07/08/19 20:45 Urine Glucose (UA) NEGATIVE mg/dL (NEGATIVE) 07/08/19 20:45 Urine Ketones NEGATIVE mg/dL (NEGATIVE) 07/08/19 20:45 Urine Blood NEGATIVE (NEGATIVE) 07/08/19 20:45 Urine Nitrite NEGATIVE (NEGATIVE) 07/08/19 20:45 Urine Bilirubin NEGATIVE (NEGATIVE) 07/08/19 20:45 Urine Urobilinogen 4.0 mg/dL (<2.0) H 07/08/19 20:45 Ur Leukocyte Esterase SMALL (NEGATIVE) H 07/08/19 20:45 Urine Ascorbic Acid 40 (NEGATIVE) H 07/08/19 20:45 Urine Opiates Screen NEGATIVE 07/08/19 20:45 Urine Methadone Screen NEGATIVE 07/08/19 20:45 Ur Barbiturates Screen NEGATIVE 07/08/19 20:45 Ur Phencyclidine Scrn NEGATIVE 07/08/19 20:45 Ur Amphetamines Screen NEGATIVE 07/08/19 20:45 U Benzodiazepines Scrn NEGATIVE 07/08/19 20:45 Urine Cocaine Screen NEGATIVE 07/08/19 20:45 U Marijuana (THC) Screen NEGATIVE 07/08/19 20:45 RPR NONREACTIVE (NONREACTIVE) 07/08/19 21:39 Blood Type O POSITIVE 07/08/19 21:39 Antibody Screen NEGATIVE 07/08/19 21:39 Plan Health Concerns: needs iron rich foods Plan of Treatment: d/c home, f/up with [facility] in 4 wks for PP check. Iron rich foods discussed Time Spent: Less than 30 Minutes
== END 2019-07-11 12:55 | disposition home or self-care (01) | DRG 806 ==
LOC: LC 20:40 → LR 21:10 → 2S 07-09 04:16
PROVIDERS: ADMIT Obstetrics & Gynecology; ATTEND Obstetrics & Gynecology
PROC: 10E0XZZ Delivery of Products of Conception, External Approach (ICD-10-PCS; principal; 2019-07-09)
PROC: 0KQM0ZZ Repair Perineum Muscle, Open Approach (ICD-10-PCS; 2019-07-09)
DX: O26.873 Cervical shortening, third trimester (principal); Z37.0 Single live birth; O70.1 Second degree perineal laceration during delivery; D62 Acute posthemorrhagic anemia; O99.02 Anemia complicating childbirth; Z3A.39 39 weeks gestation of pregnancy
CPT/HCPCS: 1967; 36415; 80307; 81005; 85025; 85027; 86592; 86850; 86900; 86901; J1756; J2590; J3010; J3490